=== PATIENT | female | born 1955 | race Caucasian/White ===

== ENCOUNTER 2017-07-28 16:20 | Emergency (ER) | payer SELFPAY, OTHER ==
[2017-07-28] MEDS: LIDOCAINE 1% (MDV) 20 ML INJ SC (19:21)
== END 2017-07-28 19:45 | disposition home or self-care (01) ==
LOC: FTE 16:20
DX: S91.111A Laceration without foreign body of right great toe without damage to nail, initial encounter (principal); I10 Essential (primary) hypertension; E11.9 Type 2 diabetes mellitus without complications; W22.8XXA Striking against or struck by other objects, initial encounter; Y92.9 Unspecified place or not applicable
CPT/HCPCS: 99283